=== PATIENT | male | born 1940 | race Caucasian/White ===

== ENCOUNTER 2017-01-27 05:17 | Day surgery (SDC) | payer MEDICARE ==
[2017-01-25 14:55] LABS: BASOPHILS 0.3 % (0-2); EOSINOPHILS 3.6 % (0-7); HEMATOCRIT 42.6 % (42.0-54.0); HEMOGLOBIN 13.9 g/dL (13.5-17.5); IMMATURE GRANULOCYTES 0.2 % (0-5); LYMPHOCYTES 30.6 % (15-50); MCH 30.3 pg (26.0-34.0); MCHC 32.6 g/dL (31.0-37.0); MEAN PLATELET VOLUME 10.3 fL (7.4-10.4); MONOCYTES 10.1 % (2-11); NEUTROPHILS 55.2 % (40-80); PLATELET COUNT 183 10x3/uL (130-400); RBC 4.58 10x6/uL (4.20-6.10); RDW 13.7 % (11.5-14.5); WBC 6.2 10x3/uL (4.8-10.8)
[2017-01-25 15:05] LABS: APTT 24.1 SECONDS (22.8-39.4); INR 0.92 (0.85-1.17); PROTIME 12.2 SECONDS (11.6-15.0)
[~2017-01-27] VITALS: Ht 170.2 cm; Wt 76.2 kg
--- NOTE | ~2017-01-27 | HP ---
PATIENT: ELPIDIO WATERS MEDICAL RECORD: [id number] ACCOUNT: [id number] LOCATION:[facility] : 38 ADMISSION DATE: 01/27/17 HISTORY AND PHYSICAL EXAMINATION HISTORY OF PRESENT ILLNESS: The patient has a history of a DALM lesion at 80 cm which has been tattooed. He also has a history of Crohn disease. He has undergone lower endoscopies by Dr. Suarez as well as by myself. During his endoscopy back in 2014, the area where the dome lesion had been was biopsied and it revealed only minimal chronic inflammation, which was nonspecific. PAST MEDICAL AND SURGICAL HISTORY: Gastroesophageal reflux, Crohn disease, hypothyroidism, on replacement therapy. Ex-smoker, quit in the , history of Crohn exacerbation, history of right hemicolectomy in the past, history of lung nodule. History of removal of a rectal cancer polyp by Dr. Ashok Mujica several years ago; history of 2 intestinal resections in [place], history of intraabdominal adhesions, history of cholecystectomy, history of hiatal hernia, history of gastroesophageal reflux which is controlled on medications, history of PVCs and cardiac arrhythmias, history of 2 coronary stents. HOME MEDICATIONS: Levothyroxine, famotidine, Plavix, Lipitor, aspirin, carvedilol. ALLERGIES: DEMEROL. REVIEW OF SYSTEMS: Negative for CVA or seizures. Negative for diabetes or hepatitis. PHYSICAL EXAMINATION: GENERAL: The patient does not appear acutely ill. He does not appear chronically ill. VITAL SIGNS: Reviewed. HEAD: External ears appear normal. EYES: Extraocular movements are intact. NECK: Trachea is midline. CHEST: No intercostal retractions. PULMONARY: Nonlabored, no stridor. ABDOMEN: Nontender. EXTREMITIES: No peripheral cyanosis. INTEGUMENT: No rash, no ulcerations. IMPRESSION: 1. History of Crohn disease. 2. History of a tattooed DALM lesion at 80 cm. PLAN: Colonoscopy, polypectomy if indicated and possible ablation of a DALM lesion utilizing the argon plasma commissioner of internal revenue. TRANSINT:[id number] Voice Confirmation ID: [id number] DOCUMENT ID: [id number] HISTORY AND PHYSICAL [id number] ELPIDIO WATERS AYDE HARRISON MD CC: SUNDAY RAMIREZ KETCHER, BRENDA MD and SHASHA CARLSON MD [id number] DICTATION DATE: 01/27/17 0943 NATURAL GAS TRADER: 01/27/[address] [facility] 01/27/17 [facility] [address] [place] [address]
--- NOTE | ~2017-01-27 | OP ---
PATIENT NAME: ELPIDIO WATERS MEDICAL RECORD: [id number] :38 LOCATION:D.OPS ADMISSION DATE: SURGEON: AYDE HARRISON MD DATE OF OPERATION: 01/27/2017 PREOPERATIVE DIAGNOSES: 1. History of Crohn disease. 2. History of DALM lesion at 80 cm. POSTOPERATIVE DIAGNOSES: 1. Active Crohn disease of the ileum. 2. History of Crohn disease. 3. No evidence of regrowth or persistence of the DALM lesion at 80 cm. PROCEDURES: 1. Total colonoscopy to cecum. 2. Cold endoscopic biopsies of the area of active Crohn disease in the distal ileum. SURGEON: Ayde Harrison MD. TOBACCO CLOTH RECLAIMER: None. BLOOD LOSS: Minimal. ANESTHESIA: General. COMPLICATIONS: None. The reason the procedure was performed in the operating room with the argon plasma industrial economist was because I felt that the DALM lesion was going to require ablation utilizing the argon plasma industrial economist. As it turned out, the DALM lesion had not persistent or recurred. At least, I found no evidence of the DALM lesion. The tattooed area was easily identifiable. OPERATIVE COURSE: The patient was conveyed to the operating room electively on 01/27/2017. General anesthesia was induced by the anesthesia staff. The patient was placed in the [place]on[place] position. A digital rectal examination was performed. The prostate was symmetric and firm and without nodules. A colonoscope was inserted through the anus. It was easily advanced to the ileal colocolonic anastomosis. I intubated the ileum. Erythema as well as some exudate was present in the distal ileum indicating active Crohn's disease. This was biopsied utilizing the cold endoscopic biopsies. I then slowly withdrew the endoscope. I irrigated and aspirated extensively. The pullback was greater than an 18-minute pullback. The tattooed area was easily identifiable. I took several passes around the tattooed site utilizing direct imaging as well as narrow band imaging. I noted no evidence or recurrence of the DALM lesion. I continued to withdraw the endoscope. A retroflexed view was obtained in the rectum. There was a tiny area of active Crohn's disease at the anus. I then unretroflexed the scope and removed it under direct vision. The only areas of active Crohn's disease I could identify was at the anus and this was about the size of a dime. The other was at the distal ileum, which was biopsied. I am planning to see the patient in my office in 2-3 weeks. It is very likely I will return the patient's endoscopic care back over to Dr. Suarez OPERATIVE REPORT [id number] ELPIDIO WATERS at that time. TRANSINT:[id number] Voice Confirmation ID: [id number] DOCUMENT ID: [id number] AYDE HARRISON MD CC: SUNDAY RAMIREZ KETCHER, BRENDA MD and SHASHA CARLSON MD [id number] DICTATION DATE: 01/27/17 0950 BELT KNIFE FEEDER: 01/27/17 1829 [facility] 01/27/[address] [facility] [address] [place] [address]
[~2017-01-27 05:17] MED LIST: ASPIRIN EC81 M1 PO; AZULFIDINE500 MG PO; COREG 3.1253.125 MG PO; FOLIC ACID1 MG PO; LIPITOR40 MG PO; PEPCID20 MG PO; PLAVIX75 MG PO; PRILOSEC20 MG PO; SYNTHROID175 MCG PO; VITAMIN B-1000 MCG/M IM; VITAMIN D31000 UNIT PO
[2017-01-27 06:50] VITALS: BP 126/70; Ht 170.2 cm; Wt 76.2 kg
--- NOTE | 2017-01-27 10:46 | NUR ---
1000-RECD FROM PACU. DROWSY. AROUSES EASILY. IV PATENT. 1030-ALERT. PASSING FLATUS. FULL LIQUIDS SERVED.
--- NOTE | 2017-01-27 11:32 | NUR ---
1120-D/C HOME VIA WHEELCHAIR WITH .
== END 2017-01-27 11:20 | disposition home or self-care (01) ==
LOC: D.OPS 05:17 → D.PAN 08:00 → D.OPS 08:00
PROVIDERS: Anesthesiology
DX: K50.00 Crohn's disease of small intestine without complications (principal); F17.200 Nicotine dependence, unspecified, uncomplicated; I25.10 Atherosclerotic heart disease of native coronary artery without angina pectoris; I10 Essential (primary) hypertension; Z95.5 Presence of coronary angioplasty implant and graft; K21.9 Gastro-esophageal reflux disease without esophagitis; Z01.812 Encounter for preprocedural laboratory examination

== ENCOUNTER 2020-01-09 06:39 | Day surgery (SDC) | payer MEDICARE ==
[~2020-01-09] VITALS: Ht 170.2 cm; Wt 73.6 kg
--- NOTE | ~2020-01-09 | OP ---
PATIENT NAME: ELPIDIO WATERS MEDICAL RECORD: [id number] :38 LOCATION:[facility] ADMISSION DATE: SURGEON: VERA WHYTE MD DATE OF OPERATION: 01/09/2020 BRIEF HISTORY AND PHYSICAL: Mr. Waters is a very pleasant 79-year-old gentleman who was most recently seen in clinic on 12/26/2019 for evaluation of an abnormal CT, which was obtained on 12/17/2019 while he was hospitalized at [facility] for small-bowel obstruction. The small-bowel obstruction was treated conservatively and he did not require surgery. The CT of the abdomen and pelvis with contrast revealed findings suggestive for a distal partial small-bowel obstruction probably at the anastomotic site. Also, noted was indeterminate wall thickening along the distal greater curvature of the stomach, which could represent wall edema or possible mass. Additionally, he had nonspecific wall thickening of the distal rectosigmoid colon with no significant surrounding inflammatory changes, mild asymmetric wall thickening involving the left anterior urinary bladder, a partial right colectomy was again seen. Pertinent past medical history includes a history of Crohn's disease involving both the colon and the small bowel. The patient has had surgery in the remote past with Dr. Price for a distal small-bowel obstruction in the anastomosis is the result of this surgery in the right colon. He also has a history of a DALM lesion at 80 cm. In January of 2017, Dr. Francisco Centeno performed a colonoscopy, which revealed active Crohn's disease of the ileum and there was no evidence at that time of regrowth or persistence of the DALM lesion at 80 cm. Of note, unfortunately, the patient was diagnosed with bladder cancer in August of 2018. Also, the patient has had a diagnosis of rectal cancer resulting in additional surgery with Dr. Francisco Centeno. The patient will have both an EGD and a colonoscopy this date to further evaluate the abnormal CT findings which were seen on the November 2019 CT as well as to evaluate the area of the distal small-bowel obstruction. EGD FINDINGS: Informed consent was given. The patient was made comfortable with propofol. Of note, he received 720 mg of propofol for this combined procedure. After reaching an adequate level of sedation by slow IV push, the patient was placed on his left side. The endoscope was then advanced under direct visualization through the posterior pharyngeal area and advanced to the distal esophagus. The patient had fairly normal esophageal tissue until we reached the distal esophageal area and at this junction of the distal esophagus to the gastroesophageal junction, the patient was noted to have erosions with some erythema and edema and biopsies were obtained. He was then seen to have a very small hiatal hernia, which was noted to be sliding in nature and this was noted on both direct and retroflex views. On entering the cardia and fundus, only mild inflammation with very minimal edema was appreciated and biopsies were taken in the cardia. We then advanced into the stomach body along the greater curvature of the stomach which was an area of abnormal appearing tissue per the recent CT in November of 2019. The patient did have some raised nodular tissue as well as some significant edema and multiple biopsies were obtained. No obvious tumor or ulceration was noted. We also saw a very small 0.5 cm polyp in this area, which was also biopsied and placed in a pathology bottle singularly. We then proceeded to the antral area where mild inflammation was noted with OPERATIVE REPORT [id number] ELPIDIO WATERS minimal edema and biopsies were obtained. The duodenal bulb had bulb had mild inflammation with some erythema, minimal edema and biopsies were taken. The second portion of the duodenum had mild edema. The ampulla was noted and no tumor or significant inflammation was seen and bile was present. We did take biopsies in the second portion of the duodenum. The scope was then withdrawn. IMPRESSION: 1. Erosive distal esophagitis, biopsied. 2. Small sliding hiatal hernia. 3. Mild inflammation with a small amount of edema in the cardia and fundus, biopsied. 4. Edema, erythema to a moderate degree, but no tumor noted along the greater curvature of the stomach within the stomach body. Biopsies obtained. 5. Small 0.5 cm polyp in the stomach body biopsied. 6. Mild inflammation in the antral area, biopsied. 7. Mild inflammation seen in the duodenal bulb biopsy. 8. Mild to moderate edema in the second portion of the duodenum, biopsied. Ampulla located, bile present. COLONOSCOPY WITH COLD BIOPSY FORCEPS, COLONOSCOPY WITH HOT BIOPSY POLYPECTOMY: FINDINGS: The patient was then again positioned on his left side and medications were adjusted for his comfort and safety. The colonoscope was then inserted via the rectum and was advanced to the right colon where the anastomotic site was identified. The area of the previous DALM tumor was seen via a scar and no regrowth of this polyp was observed. We then explored the small bowel, which had 1-2 very small ulcerations, mild edema, no regrowth of tumor was appreciated and biopsies were obtained. The anastomotic site was identified On withdrawal of the scope in the anastomosis, we took some random biopsies in the anastomosis of the colon, but no evidence of active Crohn's was seen and no tumor was appreciated. We then began to withdraw the scope and carefully examined all of the colon mucosa. Tissue appeared to be fairly normal until reaching 60 cm within the colon where very minimal inflammation was appreciated and a biopsy was obtained. The patient did have some bleeding noted after obtaining the biopsies, but this did slow considerably. Of note, the patient is on Plavix for cardiac stents, but has stopped this medication for 5 days. We then continued to withdrawal of the scope and a small polyp was noted at 22 cm within the sigmoid area and this was removed with hot biopsy forceps technique. The previous CT showed a lot of edema in the rectosigmoid area, but this was not present on the examination today. Only mild edema was seen within the rectum. The rectum was carefully explored as this was the site of abnormal tissue in the past. The patient had removal of 4 polyps in the distal rectal area with hot biopsy forceps technique. The rest of the colon tissue, did not show evidence of active Crohn's disease. On final withdrawal of the scope, there was some edema noted with some inflammation in the external rectal area. We are unable to biopsy this site and the inflammation could possibly be due to the fact that the patient has just had a significant prep, which was felt to be good overall. We will follow up with OPERATIVE REPORT [id number] ELPIDIO WATERS the biopsies which were taken within the rectum. The scope was then completely withdrawn. IMPRESSION: 1. Right anastomotic site identified and biopsied. No significant inflammation noted within the colonic tissue. 2. Distal small bowel revealed a few small ulcerations with very mild active Crohn's disease. 3. Small amount of inflammation noted at 60 cm within the colon. Biopsies obtained. 4. 1.0 cm polyp at 22 cm within the colon, removed with hot biopsy forcep technique. 5. Rectal inflammation noted with some edema. Biopsies taken. Four small distal rectal polyps removed with hot biopsy forceps technique. 6. Minimal internal hemorrhoids. 7. Some edema in the external anal area observed. PLAN: 1. Check all biopsy reports of the colon and the ED. 2. The patient to continue his sulfasalazine at a dose of 1000 mg p.o. q.i.d. 3. No anti-inflammatory drugs. 4. We will ask the patient if he can call his marine consultant to see if he can hold the Plavix for at least 3 more days. 5. Resume a soft diet as we did an EGD and a colonoscopy and the patient needs to release some of the air, which will need a bit of time before it is completely resolved. 6. For the upper GI symptoms, the patient will be asked to take some omeprazole at 40 mg p.o. q.a.m. and take famotidine 40 mg at bedtime. He then can stop the omeprazole and resume Pepcid at 20 mg p.o. b.i.d. TRANSINT:[id number] Voice Confirmation ID: [id number] DOCUMENT ID: [id number] VERA WHYTE MD CC: SHASHA CARLSON [id number] DICTATION DATE: 01/09/20 1005 INSTALLER INSPECTOR FINAL: 01/09/20 1722 [facility] 01/09/20 [id number] [place] [address]
[2020-01-09 07:08] LABS: APTT 25.4 SECONDS (22.8-39.4); INR 0.95 (0.85-1.17); PROTIME 12.7 SECONDS (11.6-15.0)
[2020-01-09 07:30] LABS: ALBUMIN 3.7 g/dL (3.4-5.0); ALKALINE PHOSPHATASE 73 U/L (30-120); ALT (SGPT) 47 U/L (10-68); BILIRUBIN - TOTAL 0.46 mg/dL (0.2-1.3); CALC OSMOLALITY 286 mosm/kg (275-300); CARBON DIOXIDE 26.5 mmol/L (21.0-32.0); CHLORIDE - SERUM 109 mmol/L (98-107); GLUCOSE 101 mg/dL (74-106); POTASSIUM - SERUM 3.8 mmol/L (3.5-5.1); PROTEIN - SERUM 7.3 g/dL (6.4-8.2); SODIUM 145 mmol/L (136-145); UREA NITROGEN 8 mg/dL (7-18); eGFR NON AFRICAN AMERICAN 76 mL/min (90-120)
[2020-01-09] MEDS ORDERED: OXYBUTYNIN CHLOR5 M1 PO (07:30)
[2020-01-09 07:36] LABS: BASOPHILS 0.2 % (0-2); EOSINOPHILS 2.4 % (0-7); HEMATOCRIT 41.4 % (42.0-54.0); HEMOGLOBIN 13.3 g/dL (13.5-17.5); LYMPHOCYTES 28.2 % (15-50); MCH 30.8 pg (26.0-34.0); MCHC 32.1 g/dL (31.0-37.0); MCV 95.8 fL (80.0-100.0); MEAN PLATELET VOLUME 9.7 fL (7.4-10.4); MONOCYTES 9.5 % (2-11); NEUTROPHILS 59.7 % (40-80); RBC 4.32 10x6/uL (4.20-6.10); RDW 14.1 % (11.5-14.5); WBC 5.8 10x3/uL (4.8-10.8)
[2020-01-09] MEDS ORDERED: AMOXICILLIN500 M1 PO (07:36)
[2020-01-09 07:42] LABS: PLATELET COUNT 262 10x3/uL (130-400)
[2020-01-09 07:51] VITALS: BP 137/69; Ht 170.2 cm; Wt 73.6 kg
--- NOTE | 2020-01-09 10:19 | NUR ---
1010-RECD FROM GI LAB. ALERT. IV PATENT. RESP WITH EASE. TAKING SIPS OF LIQUIDS WITHOUT NAUSEA.
--- NOTE | 2020-01-09 11:10 | NUR ---
1108-DISCHARGE INSTRUCTIONS REVIEWED. D/C HOME VIA WHEELCHAIR TO .
== END 2020-01-09 11:08 | disposition home or self-care (01) ==
LOC: D.OPS 06:39
PROVIDERS: Anesthesiology; ATTEND Internal Medicine Gastroenterology
DX: R93.5 Abnormal findings on diagnostic imaging of other abdominal regions, including retroperitoneum (principal); Z85.038 Personal history of other malignant neoplasm of large intestine; K50.90 Crohn's disease, unspecified, without complications; K63.5 Polyp of colon